=== PATIENT | male | born 1975 | race African-American/Black ===

== ENCOUNTER 2016-12-21 00:47 | Emergency (ER) | payer OTHER ==
[2016-12-21] MEDS: ASPIRIN 81 MG CHEW TABLET PO ONE (02:02)
[2016-12-21 02:11] LABS: BASO % 0.2 % (0.0-1.0); EOS # 0.4 K/mm3 (0.0-0.50); EOS % 3.1 % (0.0-3.0); LARGE UNSTAINED CELL # 0.1 K/mm3 (0.0-0.4); LARGE UNSTAINED CELL % 0.9 % (0.0-4.0); LYMPH # 2.2 K/mm3 (1.5-4.5); LYMPH % 16.5 % (24.0-44.0); MEAN CORPUSCULAR HEMOGLOBIN 29.6 pg (27.0-33.0); MEAN CORPUSCULAR HGB CONC 32.8 g/dl (32.0-36.5); MEAN CORPUSCULAR VOLUME 90.3 fl (80.0-96.0); MONO # 0.7 K/mm3 (0.0-0.8); NEUTROPHILS # 9.9 K/mm3 (1.8-7.7); NEUTROPHILS % 74.3 % (36.0-66.0); PLATELET COUNT, AUTOMATED 263 k/mm3 (150-450); RED CELL DISTRIBUTION WIDTH 12.4 % (11.5-14.5); WHITE BLOOD COUNT 13.3 K/mm3 (4.0-10.0)
[2016-12-21 02:17] LABS: INR 1.01
[2016-12-21] MEDS: KETOROLAC 30 MG/ML VIAL (J1885) IV ONE (02:26)
[2016-12-21 02:41] LABS: ALBUMIN 3.6 GM/DL (3.2-5.2); ALBUMIN/GLOBULIN RATIO 0.95 (1.00-1.93); ALKALINE PHOSPHATASE 87 U/L (45-117); ALT/SGPT 31 U/L (12-78); ANION GAP 6 MEQ/L (8-16); AST/SGOT 18 U/L (15-37); BILIRUBIN,DIRECT 0.2 MG/DL (0.0-0.2); BILIRUBIN,TOTAL 0.6 MG/DL (0.2-1.0); BLOOD UREA NITROGEN 17 MG/DL (7-18); CARBON DIOXIDE LEVEL 30 MEQ/L (21-32); CHLORIDE LEVEL 103 MEQ/L (98-107); CREATININE FOR GFR 1.39 MG/DL (0.70-1.30); GLOMERULAR FILTRATION RATE > 60.0 (>60); GLUCOSE, FASTING 103 MG/DL (70-105); POTASSIUM SERUM 4.1 MEQ/L (3.5-5.1); SODIUM LEVEL 139 MEQ/L (136-145); TOTAL PROTEIN 7.4 GM/DL (6.4-8.2)
[2016-12-21] MEDS ORDERED: KETO10TAB PO (03:39)
[2016-12-21 04:02] VITALS: BP 126/52
--- NOTE | 2016-12-21 07:12 | ECGEPIP ---
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
--- NOTE | 2016-12-21 07:54 | REP ---
Clinical: Chest pain . Comparison: None . Technique: PA and lateral. Findings: The mediastinum and cardiac silhouette are normal. The lung cordova are clear and without acute consolidation, effusion, or pneumothorax. The skeletal structures are intact and normal. Impression: 1. No acute cardiopulmonary process. Signed by Tobi López MD 12/21/2016 07:46 A
== END 2016-12-21 04:03 | disposition home or self-care (01) ==
LOC: M ED 02:19
DX: R07.1 Chest pain on breathing (principal); D55.0 Anemia due to glucose-6-phosphate dehydrogenase [G6PD] deficiency; Z88.8 Allergy status to other drugs, medicaments and biological substances
CPT/HCPCS: 36415; 71020; 80048; 80076; 82550; 82553; 83690; 85025; 85610; 85730; 93005; 93041; 94760; 96374; 99284; J1885